=== PATIENT | male | born 1975 | race Caucasian/White ===

== ENCOUNTER 2017-12-12 19:17 | Emergency (ER) | payer OTHER ==
[~2017-12-12] VITALS: Ht 175.3 cm; Wt 108.9 kg
[2017-12-12] MEDS ORDERED: PREVACID30 MG PO (19:28)
[2017-12-12 19:46] LABS: HEMATOCRIT 44.6 % (42.0-52.0); HEMOGLOBIN 15.5 gm/dL (14.0-18.0); MCH 30.2 pg (26.0-34.0); MCHC 34.8 g/dL (28.0-37.0); MCV 86.7 fL (80.0-100.0); MPV 7.6 fl. (7.2-11.1); NUCLEATED RBCS 0 /100WBC; PLATELET COUNT* 193 thou/uL (150-400); RBC 5.14 mil/uL (4.50-6.00); RDW-CV 13.2 % (10.5-14.5); WBC 8.7 thou/uL (4.0-11.0)
[2017-12-12 19:56] LABS: CALCIUM 8.4 mg/dL (8.5-10.1); CREATININE 1.1 mg/dL (0.6-1.3); POTASSIUM 3.9 mmol/L (3.5-5.1)
[2017-12-12 20:00] LABS: ALBUMIN 3.9 g/dL (3.4-5.0); TOTAL BILIRUBIN 1.2 mg/dL (<0.1-1.0)
[2017-12-12 20:01] LABS: URINE BILIRUBIN NEGATIVE (Negative); URINE BLOOD 1+ (Negative); URINE CLARITY CLEAR; URINE COLOR YELLOW; URINE GLUCOSE-RANDOM NEGATIVE (Negative); URINE KETONES NEGATIVE (Negative); URINE LEUKOCYTES-REFLEX NEGATIVE (Negative); URINE NITRITE-REFLEX NEGATIVE (Negative); URINE PROTEIN NEGATIVE (Negative); URINE SPECIFIC GRAVITY >= 1.030 (1.005-1.030); URINE UROBILINOGEN 0.2 E.U./dl (0.2-1.0)
[2017-12-12 20:09] LABS: SQUAMOUS 0-3 Few /LPF (0-3); URINE RBC 3-10 Few /HPF (0-2); URINE WBC-REFLEX 0-5 Rare /HPF (0-5)
[2017-12-12 20:10] LABS: AMORPHOUS PHOSPHATES Moderate /LPF (None Seen); CASTS None Seen /LPF (None Seen); MUCUS >6 Heavy strn/LPF (None Seen)
[2017-12-12 20:18] LABS: ABSOLUTE BASOPHILS 0.1 thou/uL (0.0-0.2); ABSOLUTE EOSINOPHILS 0.1 thou/uL (0.0-0.7); ABSOLUTE LYMPHOCYTES 0.7 thou/uL (0.8-5.3); ABSOLUTE MONOCYTES 0.8 thou/uL (0.0-1.2); ANISOCYTOSIS Occasional; PLATELET ESTIMATE ADEQUATE; TOXIC GRANULATION 1+
[2017-12-12] MEDS ORDERED: BACTRIM DS TAB1 EACH PO (20:37)
[2017-12-12] MEDS ORDERED: AUGMENTIN 875-1 EACH PO (20:58)
[2017-12-12 21:15] VITALS: BP 116/62
== END 2017-12-12 21:20 | disposition home or self-care (01) ==
LOC: M.ERS 19:17
PROVIDERS: Nurse Practitioner Family
DX: N39.0 Urinary tract infection, site not specified (principal); M79.1 Myalgia; R51 Headache; R25.2 Cramp and spasm; K21.9 Gastro-esophageal reflux disease without esophagitis